=== PATIENT | female | born 1980 | race Caucasian/White ===

== ENCOUNTER 2024-11-10 16:28 | Emergency (ER) | payer OTHER ==
[2024-11-10 16:36] VITALS: PULSE 81; TEMP 98.1; BMI 35.2
[2024-11-10] MEDS ORDERED: MECLIZINE HCL 12.5 MG TABLET ONE (17:09)
[2024-11-10] MEDS: MECLIZINE HCL 12.5 MG TABLET PO ONE (17:25)
[2024-11-10] MEDS: SODIUM CHLORIDE 0.9% 500 ML INFUS.BAG IV ONE (17:26)
[2024-11-10 17:35] LABS: ABSOLUTE IMMATURE GRANULOCYTES 0.03 x10^3/uL (0.0-0.031); BASOPHILS # 0.02 x10^3/uL (0.01-0.08); EOSINOPHIL % 0.8 % (0.7-5.8); EOSINOPHILS # 0.07 x10^3/uL (0.04-0.36); MCHC 32.5 g/dl (32.2-35.5); MEAN CELL VOLUME 85.5 fl (79.4-94.8); MEAN PLT VOLUME 9.2 fl (9.4-12.3); MONOCYTE # 0.39 x10^3/uL (0.24-0.86); MONOCYTE % 4.6 % (4.7-12.5); RDW 14.5 % (12.2-17.1)
[2024-11-10 18:05] LABS: GLUCOSE,RANDOM 116.0 mg/dL (74-106)
[2024-11-10 18:06] LABS: TOT PROT 6.7 g/dl (6.4-8.2)
[2024-11-10 18:07] LABS: CO2 24.0 mmol/L (21-32)
[2024-11-10 18:08] LABS: ALK PHOS 121.0 U/L (40-150)
[2024-11-10 18:11] LABS: CREATININE 0.64 mg/dL (0.55-1.3); SGOT/AST 17.0 U/L (5-34); SGPT/ALT 11.0 U/L (0-55)
[2024-11-10 18:22] LABS: HIV INTERPRETATION NEGATIVE (NEGATIVE)
[2024-11-10 18:23] LABS: HCV DIAGNOSTIC IN-HOUSE W/RFLX NON-REACTIVE (NONREACTIVE)
[2024-11-10 18:56] VITALS: BP 103/60; RESP 18
== END 2024-11-10 19:26 | disposition home or self-care (01) ==
LOC: JER 16:28
DX: R42 Dizziness and giddiness (principal); R51.9 Headache, unspecified; H53.8 Other visual disturbances; R11.0 Nausea; H93.19 Tinnitus, unspecified ear
CPT/HCPCS: 36415; 80053; 85025; 86803; 87389; 99283-25